=== PATIENT | female | born 1970 | race Caucasian/White ===

== ENCOUNTER 2017-04-08 11:44 | Emergency (ER) | payer OTHER ==
[~2017-04-08] VITALS: Ht 154.9 cm; Wt 59.0 kg
[~2017-04-08 11:44] MED LIST: ACETAMINOPHEN-1 EAC1 PO; CIPRO500 M1 PO; CIPROFLOXACIN500 M1 PO; FLAGYL500 MG PO; TRAMADOL 50 MG50 MG PO; ULTRAM 50MG TAB50 MG PO
[2017-04-08 12:11] VITALS: BP 156/93
== END 2017-04-08 12:18 | disposition home or self-care (01) ==
LOC: M.ERS 11:44
DX: G89.29 Other chronic pain (principal); R10.2 Pelvic and perineal pain; Z88.1 Allergy status to other antibiotic agents; Z88.8 Allergy status to other drugs, medicaments and biological substances; Z88.0 Allergy status to penicillin